=== PATIENT | male | born 1995 ===

== ENCOUNTER 2021-05-28 18:41 | Emergency (ER) | payer SELFPAY ==
[~2021-05-28] VITALS: Ht 170.2 cm; Wt 85.3 kg
[2021-05-28 18:49] VITALS: BP 150/91
--- NOTE | 2021-05-28 18:59 | ED Lower Extremity ---
General Stated Complaint: L FOOT PAIN Source: patient (PT SPEAKS LIMITED YAKUT), travel ot (AUNT IS ER MANAGER) History of Present Illness Date Seen by Provider: May 28, 2021 Time Seen by Provider: 18:50 Initial Comments PT ARRIVES VIA POV FROM HOME, WITH CRUTCHES C/O LEFT FOOT AND ANKLE PAIN/SWELLING/INJURY STATES HE WAS AT WORK ON FRIDAY NIGHT 05/25/21, AND AROUND 1999 AT NIGHT, HE JUMPED OFF A ROOF, APPROXIMATELY 12 FEET, AND "LANDED WRONG" ON HIS LEFT FOOT C/O PAIN AND SWELLING TO LEFT FOOT AND ANKLE DID NOT HIT HEAD NO NECK OR BACK PAIN NO PAIN OR INJURY TO ANY OTHER PART OF BODY NO PARESTHESIAS OR MOTOR DEFICITS. NO PRIOR INJURY TO THIS FOOT/ANKLE/LEG TOOK IBUPROFEN 800 MG ON FRIDAY, FRIDAY AND LAST NIGHT AROUND 1999 HAS NOT TAKEN ANYTHING ELSE FOR PAIN DID NOT REPORT TO EMPLOYER--"[employer]" ( [employer] ???) PCP NONE Allergies and Home Medications Allergies Coded Allergies: No Known Drug Allergies (Unverified , 05/28/21) Patient Home Medication List Home Medication List Reviewed: Yes Hydrocodone/Acetaminophen (Hydrocodone-Acetamin 5-325 mg) 1 Each Tablet, 1 EACH PO Q4-6 HOURS PRN for PAIN Prescribed by: ZOFIA CISNEROS on 05/28/212022 Review of Systems Constitutional: no symptoms reported Musculoskeletal: see HPI Skin: other (BRUISING) Psychiatric/Neurological: No Symptoms Reported Past Iiprxnv-Cdysrm-Mkeovu Hx Patient Social History Tobacco Use?: No Substance use?: No Alcohol Use?: Yes Alcohol Frequency: Several times a month Past Medical History Surgeries: No Respiratory: No Cardiac: No Neurological: No Genitourinary: No Gastrointestinal: No Musculoskeletal: No Endocrine: No HEENT: No Cancer: No Psychosocial: No Integumentary: No Blood Disorders: No Physical Exam Vital Signs Vital Signs - First Documented 05/28/21 18:49 Temp 36.6 Pulse 102 Resp 16 B/P (MAP) 150/91 (110) Pulse Ox 96 Capillary Refill : Height, Weight, BMI Height: '" Weight: lbs. oz. kg; BMI Method: General Appearance: WD/WN HEENT: normal ENT inspection Neck: non-tender, full range of motion, supple, normal inspection Cardiovascular: normal peripheral pulses (STRONG DOPPLER PULSES ON LEFT FOOT--DIFFICULT TO PALPATE DUE TO SIGNIFICANT AMOUNT OF SWELLING), regular rate, rhythm, no murmur Respiratory: chest non-tender, normal breath sounds, no respiratory distress, no accessory muscle use Gastrointestinal: normal bowel sounds, non tender, soft Back: normal inspection, no CVA tenderness, no vertebral tenderness Hips: bilateral hip non-tender, bilateral hip normal inspection, bilateral hip normal range of motion, bilateral hip no evidence of injury Legs: bilateral leg non-tender, bilateral leg normal inspection, bilateral leg normal range of motion, bilateral leg no evidence of injury Knees: bilateral knee non-tender, bilateral knee normal inspection, bilateral knee normal range of motion, bilateral knee no evidence of injury Ankles: right ankle non-tender, right ankle normal inspection, right ankle normal range of motion, right ankle no evidence of injury; left ankle bone tenderness, left ankle ecchymosis, left ankle limited range of motion, left ankle pain, left ankle soft tissue tenderness, left ankle swelling, left ankle other (SIGNIFICANT SWELLING TO LEFT FOOT AND ANKLE WITH SIGNIFICANT OLD BRUISING--FADED YELLOW / PURPLE /BROWN BRUISING TO MOST OF FOOT AND ANKLE. DISTAL MOTOR/SENSORY/VASCULAR INTACT. ) Feet: right foot non-tender, right foot normal inspection, right foot normal range of motion, right foot no evidence of injury; left foot bone tenderness, left foot ecchymosis, left foot limited range of motion, left foot pain, left foot soft tissue tenderness, left foot swelling, left foot other ( ABOVE) Neurologic/Psychiatric: enrober II-XII nml as tested, no motor/sensory deficits, alert, normal mood/affect, oriented x 3 Skin: normal color (PT IS ), warm/dry, ecchymosis ( NOTED ABOVE) Procedures/Interventions Splinting and Joint Reduction : Ordered: Crutches (PT HAS BROUGHT CRUTCHES WITH HIM) Hand-Made Type: orthoglass Splint Application: Short Leg Progress/Results/Core Measures Results/Orders My Orders Orders - ZOFIA CISNEROS DO Tibia/Fibula, Left, 2 Views (05/28/21 18:55) Foot, Left, 3 Views (05/28/21 18:55) Ankle, Left, 3 Views (05/28/21 18:55) Ct Extremity Lower Left Wo (05/28/21 19:15) Ct Thoracic/Lumbar Spine Wo (05/28/21 19:15) Ct Cervical Spine Wo (05/28/21 ) Ed Ortho/Other Supplies Order (05/28/21 20:08) Crutches (05/28/21 20:08) Vital Signs/I&O 05/28/21 18:49 Temp 36.6 Pulse 102 Resp 16 B/P (MAP) 150/91 (110) Pulse Ox 96 Diagnostic Imaging Comments XRAYS--PER RADIOLOGIST REPORTS AT 1942 LEFT TIB-FIB FINDINGS: There are comminuted intra-articular calcaneal fractures present. The tibia and fibula however appeared intact at the knee. No acute finding. IMPRESSION: Comminuted intra-articular calcaneal fractures with flattening and loss of Boehler's angle. No appreciable tibial or fibular fracture. LEFT ANKLE FINDINGS: Three view left ankle demonstrates at least mildly comminuted fractures of the calcaneus with flattening of the calcaneus and loss of Boehler's angle. Fracture lines likely involve the anterior and posterior subtalar joints. The talus itself appeared intact. The medial, lateral and posterior malleoli appeared intact. IMPRESSION: Comminuted intra-articular calcaneal fractures with loss of Boehler's angle. The ankle mortise itself showed no disruption. LEFT FOOT FINDINGS: There are comminuted fractures of the calcaneus with flattening of the calcaneus and loss of Boehler's angle. Fractures extend intra-articular into the calcaneal cuboid joint as well as at the levels of the anterior and posterior subtalar joints. There is dislocation of the distal phalanx of the 5th toe. No other injury apparent. IMPRESSION: Intra-articular comminuted fractures of the calcaneus. Dislocation at the proximal phalanx of the 5th toe CT SCANS--PER RADIOLOGIST REPORTS AT 2016 CT CERVICAL SPINE-- FINDINGS: Cervical body heights maintained. Alignment anatomic. The facet relationships normal. No fracture or dislocation. No cervical fracture. No paraspinal hemorrhage. Central skull base and the craniocervical relationship appeared normal. IMPRESSION: Normal CT cervical spine. CT THORACIC/LUMBAR SPINE-- FINDINGS: T-spine: Thoracic statures are normal. The alignment anatomic. No fracture or paraspinal hemorrhage. There is no stenosis. The visualized posterior rib segments and partially visualized lungs, pleura and mediastinum unremarkable where seen. Lumbar spine: Lumbar statures and alignment normal. The pedicles and pars intact. No fracture. No paraspinal hemorrhage. No significant stenosis. IMPRESSION: Thoracolumbar spine intact, aligned anatomically and nonacute. CT LEFT LOWER EXTREMITY--PER RADIOLOGIST REPORT AT 2024 FINDINGS: There are comminuted fractures of the mid to anterior thirds of the calcaneus. Fracture lines extend into the anterior and subtalar joints as well as distally into the calcaneocuboid joint There is flattening and loss of Boehler's angle. The medial, lateral and posterior malleoli were intact. The talar dome intact. The talus intact. The tarsal bones and tarsometatarsal joints intact. The metatarsals intact. There is lateral dislocation of the phalanx of the 5th toe with respect to its metatarsal. IMPRESSION: Comminuted intra-articular calcaneal fractures with flattening and loss of Boehler's angle. Dislocation at the MTP of the 5th ray. Tarsal bones and tarsometatarsal joints appeared intact. Ankle joint intact Reviewed: Reviewed by Mo Departure Communication (Admissions) 2002--SPOKE WITH DR. SEVERO MACE, ORTHOPEDIC SURGEON [employer]. ADVISES POSTERIOR SPLINT AND CRUTCHES/NON-WEIGHT BEARING AND HE WILL SEE PT IN OFFICE IN FOLLOW UP THIS WEEK. Impression Primary Impression: Closed left calcaneal fracture Disposition: 01 HOME, SELF-CARE Condition: Stable Departure-Patient Inst. Referrals: [facility] [place] ([place]) Primary Care Physician SEVERO MACE MD Patient Instructions: Going Up and Down Curbs or Stairs With a Walker or Crutches, Heel Fracture (DC), How to Use Crutches, Splint Care Add. Discharge Instructions: WEAR SPLINT AT ALL TIMES, USE CRUTCHES AT ALL TIMES NO WEIGHT BEARING ON LEFT FOOT ICE TO AREA AT 20 MINUTE INTERVALS ELEVATE FOOT MUCH POSSIBLE FOLLOW UP WITH DR. SEVERO MACE THIS WEEK FOR FURTHER CARE--CALL IN THE MORNING TO SCHEDULE APPOINTMENT Scripts Hydrocodone/Acetaminophen (Hydrocodone-Acetamin 5-325 mg) 1 Each Tablet 1 EACH PO Q4-6 HOURS PRN for PAIN, #20 TAB Prov: ZOFIA CISNEROS DO 05/28/21 ZOFIA CISNEROS DO May 28, 2021 18:59
--- NOTE | 2021-05-28 19:22 | Diagnostic Imaging Report ---
INDICATION: Fall with pain FINDINGS: Three view left ankle demonstrates at least mildly comminuted fractures of the calcaneus with flattening of the calcaneus and loss of Boehler's angle. Fracture lines likely involve the anterior and posterior subtalar joints. The talus itself appeared intact. The medial, lateral and posterior malleoli appeared intact. IMPRESSION: Comminuted intra-articular calcaneal fractures with loss of Boehler's angle. The ankle mortise itself showed no disruption. Dictated by: Dictated on workstation # [id number]
--- NOTE | 2021-05-28 19:26 | Diagnostic Imaging Report ---
INDICATION: Trauma FINDINGS: There are comminuted fractures of the calcaneus with flattening of the calcaneus and loss of Boehler's angle. Fractures extend intra-articular into the calcaneal cuboid joint as well as at the levels of the anterior and posterior subtalar joints. There is dislocation of the distal phalanx of the 5th toe. No other injury apparent. IMPRESSION: Intra-articular comminuted fractures of the calcaneus. Dislocation at the proximal phalanx of the 5th toe Dictated by: Dictated on workstation # [id number]
--- NOTE | 2021-05-28 19:38 | Diagnostic Imaging Report ---
INDICATION: Injury with pain FINDINGS: There are comminuted intra-articular calcaneal fractures present. The tibia and fibula however appeared intact at the knee. No acute finding. IMPRESSION: Comminuted intra-articular calcaneal fractures with flattening and loss of Boehler's angle. No appreciable tibial or fibular fracture. Dictated by: Dictated on workstation # [id number]
--- NOTE | 2021-05-28 19:48 | Diagnostic Imaging Report ---
PROCEDURE: CT cervical spine without contrast. TECHNIQUE: Multiple contiguous axial images were obtained through the cervical spine without the use of intravenous contrast. Sagittal and coronal reformations were then performed. Auto Exposure Controls were utilized during the CT exam to meet ALARA standards for radiation dose reduction. INDICATION: Injury with foot fractures and neck pain. FINDINGS: Cervical body heights maintained. Alignment anatomic. The facet relationships normal. No fracture or dislocation. No cervical fracture. No paraspinal hemorrhage. Central skull base and the craniocervical relationship appeared normal. IMPRESSION: Normal CT cervical spine. Dictated by: Dictated on workstation # [id number]
--- NOTE | 2021-05-28 20:06 | Diagnostic Imaging Report ---
PROCEDURE: CT thoracic and lumbar spine without contrast. TECHNIQUE: Multiple contiguous axial images were obtained through the thoracic and lumbar spine without the use of intravenous contrast. Sagittal and coronal reformations were then performed. All CT scans use one or more of the following dose optimizing techniques: automated exposure control, MA and/or KvP adjustment based on a patient size and exam type, or iterative reconstruction. INDICATION: Injury, fractures. COMPARISON: No priors FINDINGS: T-spine: Thoracic statures are normal. The alignment anatomic. No fracture or paraspinal hemorrhage. There is no stenosis. The visualized posterior rib segments and partially visualized lungs, pleura and mediastinum unremarkable where seen. Lumbar spine: Lumbar statures and alignment normal. The pedicles and pars intact. No fracture. No paraspinal hemorrhage. No significant stenosis. IMPRESSION: Thoracolumbar spine intact, aligned anatomically and nonacute. Dictated by: Dictated on workstation # [id number]
--- NOTE | 2021-05-28 20:19 | Diagnostic Imaging Report ---
PROCEDURE: CT left lower extremity without contrast. TECHNIQUE: Multiple contiguous axial images were obtained through the left lower extremity without the use of intravenous contrast. Sagittal and coronal reformations were then performed. Auto Exposure Controls were utilized during the CT exam to meet ALARA standards for radiation dose reduction. INDICATION: Injury with fractures FINDINGS: There are comminuted fractures of the mid to anterior thirds of the calcaneus. Fracture lines extend into the anterior and subtalar joints as well as distally into the calcaneocuboid joint There is flattening and loss of Boehler's angle. The medial, lateral and posterior malleoli were intact. The talar dome intact. The talus intact. The tarsal bones and tarsometatarsal joints intact. The metatarsals intact. There is lateral dislocation of the phalanx of the 5th toe with respect to its metatarsal. IMPRESSION: Comminuted intra-articular calcaneal fractures with flattening and loss of Boehler's angle. Dislocation at the MTP of the 5th ray. Tarsal bones and tarsometatarsal joints appeared intact. Ankle joint intact Dictated by: Dictated on workstation # [id number]
[2021-05-28] MEDS ORDERED: ACHD5005 PO (20:21)
== END 2021-05-28 20:48 | disposition home or self-care (01) ==
LOC: EDBD 18:46 → ER 18:46
DX: S92.062A Displaced intraarticular fracture of left calcaneus, initial encounter for closed fracture (principal); W17.89XA Other fall from one level to another, initial encounter; Y30.XXXA Falling, jumping or pushed from a high place, undetermined intent, initial encounter
CPT/HCPCS: 72125; 72128; 72131; 73590; 73610; 73630; 73700

== ENCOUNTER → 2021-06-05 | Outpatient (CLI) | payer SELFPAY ==
[~2021-06-05] MED LIST: ACHD5005 PO
== END ==
LOC: ORTHO 09:30
PROVIDERS: ATTEND Orthopaedic Surgery
DX: S93.129A Dislocation of metatarsophalangeal joint of unspecified toe(s), initial encounter (principal); S92.002A Unspecified fracture of left calcaneus, initial encounter for closed fracture; X58.XXXA Exposure to other specified factors, initial encounter
CPT/HCPCS: 99203

== ENCOUNTER 2021-06-06 05:33 | Outpatient (CLI) | payer SELFPAY ==
[~2021-06-06] VITALS: Ht 170.8 cm; Wt 80.0 kg
== END 2021-06-06 14:56 | disposition home or self-care (01) ==
LOC: PREOP 05:33
PROVIDERS: ATTEND Orthopaedic Surgery
DX: Z01.818 Encounter for other preprocedural examination (principal)

== ENCOUNTER 2021-06-08 06:34 | Day surgery (SDC) | payer SELFPAY ==
[~2021-06-08] VITALS: Ht 170.8 cm; Wt 80.0 kg
[2021-06-08] VITALS (9 sets, daily range): BP systolic 100–121; BP diastolic 59–85
[2021-06-08] MEDS ORDERED: LACTATED RINGERS 1,000 ML IV PRN (06:45)
[2021-06-08] MEDS ORDERED: MIDAZOLAM 2 MG/2 ML (VERSED) VIAL ONE (08:48)
[2021-06-08] MEDS ORDERED: fentaNYL INJ 100 MCG/2 ML AMP ONE (08:48)
--- NOTE | 2021-06-08 09:30 | Progress Note-Pre Operative ---
Pre-Operative Progress Note H&P Reviewed The H&P was reviewed, patient examined and no changes noted. Date Seen by Provider: Jun 08, 2021 Time Seen by Provider: 09:25 Date H&P Reviewed: Jun 08, 2021 Time H&P Reviewed: 09:25 Pre-Operative Diagnosis: Left Fifth Metatarsophalangeal Dislocation SEVERO MACE MD Jun 08, 2021 09:30
[2021-06-08] MEDS ORDERED: ONDANSETRON 4 MG/2 ML (SDV) Z0FRAN ONE (09:37)
[2021-06-08] MEDS ORDERED: LIDOCAINE PF 2% 5 ML (XYLOCAINE) VIAL ONE (09:37)
[2021-06-08] MEDS ORDERED: proPOfol 200 MG/20 ML (DIPRIVAN) VIAL IV ONE ×2 (09:37→09:53)
--- NOTE | 2021-06-08 10:02 | Operative Report - Ortho ---
Operative Report Surgeon (s)/Computer Language Coder (s) Surgeon SEVERO MACE MD Computer Language Coder n/a Pre-Operative Diagnosis Left Fifth Metatarsophalangeal Dislocation Post-Operative Diagnosis same Operative Report Date of Procedure: Jun 08, 2021 Name of Procedure Performed: Closed Reduction of Left Fifth Metatarsophalangeal Dislocation Description & Findings After obtaining informed consent and marking the patient, patient was taken to OR and administered anesthesia. Surgical timeout was taken. C-arm was used to visualize the joint. Traction and dorsal pressure were applied and reduction was achieved. C-arm confirmed reduction and the reduction was stable. Caio tape was applied. Patient emerged from anesthesia without difficulty and was stable to recovery room. Anesthesia Type General LMA Estimated Blood Loss none Specimen(s) collected/removed None SEVERO MACE MD Jun 08, 2021 10:02
[2021-06-08] MEDS ORDERED: SEVOFLURANE (ULTANE) 15 ML INHAL SOLN ONE (10:03)
[2021-06-08] MEDS ORDERED: ACHD5005 PO (10:05)
[2021-06-08] MEDS ORDERED: morphine INJ 10 MG/ML 1ML (SYR OR VIAL) IVP ONE (10:15)
[2021-06-08] MEDS ORDERED: ONDANSETRON 4 MG/2 ML (SDV) Z0FRAN IVP PRN (10:15)
--- NOTE | 2021-06-08 10:53 | Diagnostic Imaging Report ---
INDICATION: Fluoroscopy for fifth toe closed reduction. FINDINGS: Fluoroscopy was provided in the OR during closed reduction of the fifth toe. 8 seconds of fluoroscopic time was utilized. Two images were obtained demonstrating normal alignment of the fifth toe. IMPRESSION: Fluoroscopy during closed reduction of fifth toe dislocation. Dictated by: Dictated on workstation # [id number]
--- NOTE | 2021-06-08 11:36 | Anesthesia-General Post-Op ---
General Patient Condition Mental Status/LOC: Same as Preop Cardiovascular: Satisfactory Nausea/Vomiting: Absent Respiratory: Satisfactory Pain: Controlled Complications: Absent Post Op Complications Complications None Follow Up Care/Instructions Patient Instructions None needed. Anesthesia/Patient Condition Patient Condition Patient is doing well, no complaints, stable vital signs, no apparent adverse anesthesia problems. YULIET MITCHELL DO Jun 08, 2021 11:36
== END 2021-06-08 12:07 ==
LOC: SDC 06:34
PROVIDERS: ATTEND Orthopaedic Surgery
DX: S93.125A Dislocation of metatarsophalangeal joint of left lesser toe(s), initial encounter (principal); S92.012A Displaced fracture of body of left calcaneus, initial encounter for closed fracture; Z79.1 Long term (current) use of non-steroidal anti-inflammatories (NSAID)
CPT/HCPCS: 76000; 87081